=== PATIENT | female | born 1980 | race Hispanic/Latino ===

== ENCOUNTER 2018-08-30 20:00 | Inpatient (IN) | payer MEDICAID, OTHER, SELFPAY ==
--- NOTE | 2018-08-30 19:33 | PDOC.FPROB ---
Addendum entered and electronically signed by Wilfred Blanco DO 08/31/18 02:30 : Correction, EFW was 3594g, not 3253g Original Note: FMR OB H&P: HPI - History of Present Illness Chief Complaint: Medically indicated IOL for A1GDM Indentification: 38 year old History of Present Illness: 38 year old at 39.1 wks presents for medically indicated IOL for A1GDM. Patient endorses good movement. Patient denies vaginal bleeding, vaginal discharge, LoF. Primary Care Physician: LURDES Norton FMR OB H&P: Current - Care : 7 Para: [id number] Gestational age: 39.1 wks Due date: 09/05/2018 Dating Criteria: LMP/8.3 wk sono Total weight gain: 9 Ibs - OB Labs Blood type: O RH: positive Antibody Screen: negative HIV: negative RPR: negative HepBsAg: negative Rubella: immune Gonorrhea: negative Chlamydia: negative 1 hour gtt: 161 3 hour GTT: Fasting 95, 1hr 204, 2hr 175, 3hr 118 A1c: 5.6 GBS: positive Additional labs: Quant gold negative FMR OB H&P: History - Past Medical History PMH: None - OB History OB History: A1GDM, well controlled AMA Hx of gHTN in last Maternal obesity Hx SAB x3 Hx D&C x2 Polyhydramnios, resolved - 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 CAPTAIN History: D&C x2 - Surgical History Sx History: Hernia repair - Social History Social History: Denies alcohol, tobacco, or drug use FMR OB H&P: Medications - Current Home Medications: Medication Instructions Recorded Confirmed Type Vitamin 1 tab PO DAILY #0 tab 07/04/14 08/30/18 Rx Allergies/Adverse Reactions: Allergies Allergy/AdvReac Type Severity Reaction Status Date / Time No Known Allergies Allergy Verified 08/30/18 22:19 FMR OB H&P: ROS - Review of Systems General: denies: fever/chills, weight/appetite/sleep changes Eyes: denies: eye pain, vision changes ENT: denies: nasal congestion, rhinorrhea Cardiovascular: denies: chest pain, palpitation Respiratory: denies: cough, shortness of breath Gastrointestinal: denies: abdominal pain, indigestion, nausea, vomiting Genitourinary (Female): denies: incontinence, dysuria Musculoskeletal: denies: pain, stiffness Neurologic: denies: numbness, syncope Integumentary: denies: itching, rash Psychological: denies: depression, anxiety FMR OB H&P: Vital Signs - Maternal Vital signs: BP151/83, HR 71, RR 16, spO2 100% - Heart Tones Baseline: 130 Variability: moderate Acceleration: present Deceleration: absent Category: category 1 FMR OB H&P: Physical Exam - Physical Exam General: NAD, awake, alert and oriented HEENT: normocephalic and atraumatic, MMM Neck: supple, trachea midline Chest: non-tender to palpation, no lesions Heart: RRR, normal S1/S2, no murmurs/rubs/gallops, no edema General: CTAB, no respiratory distress, good air movement Abdomen: soft, gravid, non-tender, bowel sound present Musculoskeletal: normal gait and station, pulses present Neurological: cranial nerves II through XII intact Skin: no rash, good tugor Psychiatric: intact recent and remote memory, good judgement and insight, normal mood and affect - Pelvic Exam SVE: 3/50/-3 Barker score: 4 FMR OB H&P: A/P - Problem List (1) Encounter for induction of labor Current Visit: No Status: Acute Code(s): Z34.90 - ENCNTR FOR SUPRVSN OF NORMAL , UNSP, UNSP TRIMESTER (2) Gestational diabetes Current Visit: No Status: Acute Code(s): O24.419 - GESTATIONAL DIABETES MELLITUS IN , UNSP CONTROL Qualifiers: Gestational diabetes mellitus control: diet-controlled Trimester: third trimester Qualified Code(s): O24.410 - Gestational diabetes mellitus in , diet controlled (3) Term Current Visit: No Status: Acute Code(s): Z34.80 - ENCOUNTER FOR SUPRVSN OF NORMAL , UNSP TRIMESTER (4) AMA (advanced maternal age) multigravida 35+ Current Visit: Yes Status: Acute Code(s): O09.529 - SUPERVISION OF ELDERLY MULTIGRAVIDA, UNSPECIFIED TRIMESTER Qualifiers: Trimester: third trimester Qualified Code(s): O09.523 - Supervision of elderly multigravida, third trimester (5) History of gestational hypertension Current Visit: Yes Status: Acute Code(s): Z87.59 - PERSONAL HISTORY OF COMP OF PREG, CHLDBRTH AND THE PUERP (6) History of spontaneous Current Visit: Yes Status: Acute Code(s): Z87.59 - PERSONAL HISTORY OF COMP OF PREG, CHLDBRTH AND THE PUERP Disposition: 38 year old GXPX at 39.1 wks by 8.3wk US presents for medically indicated IOL for A1GDM 1. Encounter for medically indicated IOL - US: vertex, OP, anterior placenta, EFW 3253g - Cytotec induction; unfavorable cervix - Category I strip - Augment with pitocin when favorable 2. A1GDM - Well controlled - Q6h accuchecks 3. TIUP - See plan as above 4. AMA - Declined genetic screening 5. Hx of SAB x3 - D&C x2 6. Hx gHTN - Elevated BPs since admission, pending CMP and urine protein/creatinine ratio -We will continue monitoring BP and adjust our plan based on the trend 7. GBS positive -Starting penicillin prophylaxis Discussion: Date/Time: 08/30/181931 This H&P was discussed with Dr. Flannery who agrees with the above documentation and plan. Signature: Nicole Norton DO PGY-2 Addendum - Attending - Attending Attestation Date/Time: 08/31/181832 I personally evaluated the patient and discussed the management with Dr. Blanco at time of admission. I agree with the History, Examination, Assessment and Plan documented above with any addition or exceptions noted below.
[2018-08-30] MEDS: Lactated Ringer's 1,000 ML IV SCH (22:25)
[2018-08-30 22:29] VITALS: BMI 36.6
[2018-08-30] MEDS ORDERED: Butorphanol Tartrate 1 MG/ML VIAL SLOW IVP PRN (22:56)
[2018-08-30] MEDS ORDERED: Promethazine HCl 25 MG/ML VIAL IM PRN (22:56)
[2018-08-30] MEDS ORDERED: Lidocaine 1% (PF) 30 ML VIAL SC PRN (22:56)
[2018-08-30] MEDS ORDERED: NS / Oxytocin 40 units/1000ml 1,000 ML IV PRN (22:56)
[2018-08-30] MEDS ORDERED: Ibuprofen 800 MG TAB PO PRN (22:56)
[2018-08-30] MEDS ORDERED: Acetaminophen 500 MG TAB PO PRN (22:56)
[2018-08-30] MEDS ORDERED: Ondansetron PF 4 MG/2 ML Vial IVP PRN (22:56)
[2018-08-30 23:03] LABS: Hemoglobin 13.6 g/dL (12.0-16.0); Mean Corpuscular HGB CONC 34.7 g/dL (32.0-36.0); Mean Corpuscular Hemoglobin 29.9 pg (27.0-31.0); Mean Corpuscular Volume 86.2 fL (78.0-98.0); Mean Platelet Volume 9.7 fL (7.4-10.4); Platelet Count 224 thou/uL (130-400); RBC Distribution Width 14.3 % (11.5-14.5); Red Blood Cell (RBC) Count 4.54 mill/uL (4.20-5.40); White Blood Cell (WBC) Count 8.2 thou/uL (4.8-10.8)
--- NOTE | 2018-08-30 23:23 | ULT ---
EXAM: LIMITED OB ULTRASOUND: 08/30/18 HISTORY: 38-year-old female with history of head position and placenta location. Single intrauterine fetus noted in cephalic presentation. The placenta is anterior. heart rate 135 beats per minute. IMPRESSION: Anterior placenta. Cephalic presentation. heart rate of 135 beats per minute. POS: [facility]
[2018-08-30 23:44] LABS: Syphilis Antibody Nonreactive (Nonreactive); Syphilis Antibody Index 0.17 S/CO (<1.00 Non-Reactive)
[2018-08-30] MEDS ORDERED: Penicillin G Potassium 5 MILL.UNITS in Sodium Chloride 0.9% 100 ML IVPB SCH (23:45)
[2018-08-31 00:16] LABS: HBSAg Index 0.21 S/CO (0-0.99); Hep B Surf Ag Non-Reactive S/CO (NonReactive)
[2018-08-31 00:30] LABS: ALT (SGPT) 17 U/L (8-55); AST (SGOT) 23 U/L (5-34); Albumin 3.4 g/dL (3.5-5.0); Alkaline Phosphatase 324 U/L (40-150); Anion Gap 16 mmol/L (10-20); BUN (Urea Nitrogen) 14 mg/dL (7.0-18.7); Bilirubin, Total 0.5 mg/dL (0.2-1.2); Calc. Creatinine Clearance 165 mL/min (70-130); Calcium 9.5 mg/dL (7.8-10.44); Carbon Dioxide 17 mmol/L (22-29); Chloride 109 mmol/L (98-107); Estimated GFR-MDRD Greater than 90; Globulin 3.3 g/dL (2.4-3.5); Glucose 89 mg/dL (70-105); Potassium 4.5 mmol/L (3.5-5.1); Protein, Total 6.7 g/dL (6.0-8.3); Sodium 137 mmol/L (136-145)
[2018-08-31] MEDS ORDERED: Penicillin G Potassium 5 MILL.UNITS VIAL ONE (00:44)
[2018-08-31] MEDS: Misoprostol 100 MCG TAB VAG SCH ×4 (00:47→23:37)
--- NOTE | 2018-08-31 02:27 | PDOC.LDPN ---
Labor & Delivery Progress Note - Subjective Subjective: comfortable - Objective Vital signs reviewed and normal: yes (One BP 161/90, the remaining systolic range from 115-150s, diastolic max is 90) General: NAD, resting Uterine fundus: non tender SVE: /-3 FHT: category 1, variability present (moderate, baseline at 140s) [place] contractions every: 4 minutes - Assessment (1) Encounter for induction of labor Code(s): Z34.90 - ENCNTR FOR SUPRVSN OF NORMAL , UNSP, UNSP TRIMESTER Current Visit: No Status: Acute (2) Gestational diabetes Code(s): O24.419 - GESTATIONAL DIABETES MELLITUS IN , UNSP CONTROL Current Visit: No Status: Acute Qualifiers: Gestational diabetes mellitus control: diet-controlled Trimester: third trimester Qualified Code(s): O24.410 - Gestational diabetes mellitus in , diet controlled (3) Term Code(s): Z34.80 - ENCOUNTER FOR SUPRVSN OF NORMAL , UNSP TRIMESTER Current Visit: No Status: Acute (4) AMA (advanced maternal age) multigravida 35+ Code(s): O09.529 - SUPERVISION OF ELDERLY MULTIGRAVIDA, UNSPECIFIED TRIMESTER Current Visit: Yes Status: Acute Qualifiers: Trimester: third trimester Qualified Code(s): O09.523 - Supervision of elderly multigravida, third trimester (5) History of gestational hypertension Code(s): Z87.59 - PERSONAL HISTORY OF COMP OF PREG, CHLDBRTH AND THE PUERP Current Visit: Yes Status: Acute (6) History of spontaneous Code(s): Z87.59 - PERSONAL HISTORY OF COMP OF PREG, CHLDBRTH AND THE PUERP Current Visit: Yes Status: Acute -: 38 year old GXPX at 39.1 wks by 8.3wk US presents for medically indicated IOL for A1GDM 1. Encounter for medically indicated IOL - US: vertex, OP, anterior placenta, EFW 3594g - Cytotec at 0047 with check of /-3, recheck in 2-3 hours - Category I strip - Augment with pitocin when favorable 2. A1GDM -Initial glucose 89, continue Q4 accuchecks 3. TIUP - See plan as above 4. AMA - Declined genetic screening 5. Hx of SAB x3 - D&C x2 6. Hx gHTN - Elevated BPs since admission, urine protein/creatinine ratio -We will continue monitoring BP and adjust our plan based on the trend, no need for intervention at this point 7. GBS positive -Starting penicillin prophylaxis
[2018-08-31 04:13] LABS: Creatinine, Urine 80.41 mg/dL (47-110)
[2018-08-31] MEDS: Lactated Ringer's 1,000 ML IV SCH ×2 (04:31→12:12)
[2018-08-31] MEDS: Penicillin G 2.5 MILL.units 2.5 MILL.UNITS in Premix Bag 1 BAG IVPB SCH ×5 (04:47→23:37)
--- NOTE | 2018-08-31 04:49 | PDOC.LDPN ---
Labor & Delivery Progress Note - Subjective Subjective: comfortable, no concerns - Objective Vital signs reviewed and normal: yes General: NAD, resting Uterine fundus: non tender SVE: 3/50/-3 FHT: category 1 [place] contractions every: 1-2 minutes - Assessment (1) Encounter for induction of labor Code(s): Z34.90 - ENCNTR FOR SUPRVSN OF NORMAL , UNSP, UNSP TRIMESTER Current Visit: No Status: Acute (2) Gestational diabetes Code(s): O24.419 - GESTATIONAL DIABETES MELLITUS IN , UNSP CONTROL Current Visit: No Status: Acute Qualifiers: Gestational diabetes mellitus control: diet-controlled Trimester: third trimester Qualified Code(s): O24.410 - Gestational diabetes mellitus in , diet controlled (3) Term Code(s): Z34.80 - ENCOUNTER FOR SUPRVSN OF NORMAL , UNSP TRIMESTER Current Visit: No Status: Acute (4) AMA (advanced maternal age) multigravida 35+ Code(s): O09.529 - SUPERVISION OF ELDERLY MULTIGRAVIDA, UNSPECIFIED TRIMESTER Current Visit: Yes Status: Acute Qualifiers: Trimester: third trimester Qualified Code(s): O09.523 - Supervision of elderly multigravida, third trimester (5) History of gestational hypertension Code(s): Z87.59 - PERSONAL HISTORY OF COMP OF PREG, CHLDBRTH AND THE PUERP Current Visit: Yes Status: Acute (6) History of spontaneous Code(s): Z87.59 - PERSONAL HISTORY OF COMP OF PREG, CHLDBRTH AND THE PUERP Current Visit: Yes Status: Acute -: 38 year old GXPX at 39.1 wks by 8.3wk US presents for medically indicated IOL for A1GDM 1. Encounter for medically indicated IOL - US: vertex, OP, anterior placenta, EFW 3594g - Check 350/-3, contractions 1-2 minutes, we will hold off on cytotec - Category I strip - Augment with pitocin when favorable 2. A1GDM -Current Glucose 83, continue Q4 accuchecks 3. TIUP - See plan as above 4. Hx gHTN - Elevated BPs since admission, urine protein/creatinine ratio of .14 -We will continue monitoring BP and adjust our plan based on the trend, no need for intervention at this point 7. GBS positive -Continuing penicillin
--- NOTE | 2018-08-31 08:11 | ULT ---
PRELIMINARY REPORT/[facility]/EMERGENTY AFTER-HOURS PROCEDURE US After First Trimester, Transabdominal EXAM DATE/TIME: 08/30/2018 11:40 PM CLINICAL HISTORY: 38 years old, female; Condition or disease; Lmp or gestational age (weeks): 38w5d; Other: Gest diabet es; 4th ; ; Patient HX: Limited exam for growth TECHNIQUE: Real-time transabdominal obstetrical ultrasound of the maternal pelvis and a second or third trimeste r with image documentation. COMPARISON: No relevant prior studies available. FINDINGS: GESTATION: Gestation: Single live intrauterine gestation. Heart rate: heart rate is 133 beats per minute. Presentation: Single intrauterine fetus in vertex position. Placenta: Anterior placenta with no previa or abruption. Amniotic fluid: Amniotic fluid volume is 12.9 cm. BIOMETRY: Estimated gestational age: Average gestational age 38 weeks 5 days with RICHAR 09/08/2018. Estimated weight: Estimated weight 3594 g Biparietal diameter: 9.5 cm, 38 weeks 5 days Head circumference: 33.7 cm, 38 weeks 4 days Abdominal circumference: 35 cm, 39 weeks 0 days Femur length: 7.5 cm, 38 weeks 2 days IMPRESSION: Intrauterine fetus measuring 38 weeks 5 days with RICHAR of 09/08/2018. Thank you for allowing us to participate in the care of your patient. Dictated and Authenticated by: Magalie Bonilla MD 08/31/2018 1:40 AM Central Time ([place] & [place]) FINAL REPORT OBSTETRICAL ULTRASOUND: DATE: 08/30/2018. COMPARISON: None. HISTORY: A 38-year-old female, evaluate growth. FINDINGS: I agree with the preliminary V-RAD report dictated by Dr. David. There is a single live intraute rine gestation present demonstrating a vertex presentation and a heart rate of 133 b.p.m. Plac enta located anteriorly with no evidence for a previa or abruption. Amniotic fluid index is 12.9 cm. BIOMETRY: BPD 9.5 cm, 38 weeks 5 days HC 33.7 cm, 38 weeks 4 days AC 35.1 cm, 39 weeks 0 days FL 7.5 cm, 38 weeks 2 days Average age based on ultrasound is 38 weeks 5 days. Estimated date of delivery of 09/08/2018. Estimated weight is 3495 gm +/- 532 gm. IMPRESSION: Single live intrauterine gestation as detailed above. anatomy was not assessed on this exam. POS: [facility]
[2018-08-31] MEDS ORDERED: NS w/ Oxytocin 10 units 500 ML ONE (09:15)
[2018-08-31] MEDS ORDERED: Fentanyl 4 mcg/Bup 0.1% Cadd 100 ML ONE (11:35)
--- NOTE | 2018-08-31 11:39 | PDOC.LDPN ---
Labor & Delivery Progress Note - Subjective Subjective: comfortable - Objective Vital signs reviewed and normal: yes General: NAD Uterine fundus: non tender FHT: category 1 (130/mod/+accel/no decel) [place] contractions every: 2-3 min Plan: continue plan of care, pitocin for augmentation -: 38 year old GXPX at 39.1 wks by 8.3wk US presents for medically indicated IOL for A1GDM 1. Encounter for medically indicated IOL - US: vertex, OP, anterior placenta, EFW 3594g - Check /-3, contractions 1-2 minutes, we will hold off on cytotec - Category I strip - Continue pitocin (started @ 0918), currently @ 3. Will recheck cervix 4 hrs after starting pit - pt desires epidural. Anesthesia consult placed. 2. A1GDM -Last glucose 83, continue Q4 accuchecks 3. TIUP - See plan as above 4. Hx gHTN - Elevated BPs since admission, urine protein/creatinine ratio of .14 -We will continue monitoring BP and adjust our plan based on the trend, no need for intervention at this point 7. GBS positive -Continuing penicillin Addendum - Attending - Attending Attestation Date/Time: 08/31/18 1311 I personally evaluated the patient and discussed the management with Dr. Barber and team. I agree with and repeated the History, Examination, Assessment and Plan documented above with any addition or exceptions noted below.
[2018-08-31] MEDS ORDERED: Lidocaine 1.5% w/Epi 1:200K 30 ML VIAL (Epid Use) ONE (11:49)
[2018-08-31] MEDS ORDERED: Lidocaine 1.5%/Epinephrine 1:200,000 5 ML AMPUL IJ ONE (11:50)
[2018-08-31] MEDS ORDERED: Naloxone HCl 0.4 mg/ml Vial IVP PRN ×2 (12:11)
[2018-08-31] MEDS ORDERED: Lactated Ringer's 500 ML IV PRN (12:11)
[2018-08-31] MEDS ORDERED: Promethazine HCl 25 MG/ML VIAL IM PRN (12:11)
[2018-08-31] MEDS ORDERED: Eucerin (Mineral Oil/Petrolatum,White) 30 gm Jar TOP PRN (12:11)
[2018-08-31] MEDS ORDERED: diphenhydrAMINE 50 MG/ML VIAL IVP PRN (12:11)
[2018-08-31] MEDS ORDERED: Ondansetron PF 4 MG/2 ML Vial IVP PRN ×2 (12:11→20:32)
[2018-08-31] MEDS ORDERED: ePHEDrine/0.9% NaCl/PF SYRINGE 50 mg/10 ml SLOW IVP PRN (12:11)
[2018-08-31] MEDS ORDERED: Fentanyl 4 mcg/Bupivacaine 0.1% Cassette 100 ML EPIDURAL SCH (12:15)
[2018-08-31] MEDS ORDERED: Communication Order-Pharmacy FS SCH (12:15)
--- NOTE | 2018-08-31 15:41 | PDOC.LDPN ---
Labor & Delivery Progress Note - Subjective Subjective: comfortable - Objective Vital signs reviewed and normal: yes (140/90) Dilation: 6 Effacement: 100% Station: -1 FHT: category 1 (135/mod/+accel/no decel) [place] contractions every: 2-3 AROM: clear fluid (blood tinged) Plan: continue plan of care, pitocin for augmentation -: 38 year old GXPX at 39.1 wks by 8.3wk US presents for medically indicated IOL for A1GDM 1. Encounter for medically indicated IOL - US: vertex, OP, anterior placenta, EFW 3594g - Check 6/100/-1, ctx q2-3 min. Pit @ 8. - Category I strip - epidural in place - AROM @ 1515 with blood tinged fluid 2. A1GDM -Last glucose 83, continue Q4 accuchecks 3. TIUP - See plan as above 4. Hx gHTN - Elevated BPs since admission, urine protein/creatinine ratio of .14 -We will continue monitoring BP and adjust our plan based on the trend, no need for intervention at this point 7. GBS positive -Continuing penicillin Addendum - Attending - Attending Attestation Date/Time: 08/31/18 3188 I personally evaluated the patient and discussed the management with Dr. Barber and team. I agree with the History, Examination, Assessment and Plan documented above with any addition or exceptions noted below. After AROM decel; on exam no cord. FSE placed. Now cat 1 with MV, no accels, no decels.
[2018-08-31] MEDS ORDERED: Dextrose 5%-Lactated Ringers 1,000 ML IV SCH (15:45)
--- NOTE | 2018-08-31 18:13 | PDOC.OPDEL ---
OB Operative/Delivery Note Delivery Dr/Surgeon: Sunil/Domi/Prudencio Pre-Delivery Diagnosis: medically indicated induction Procedure/Post Delivery Dx: spontaneous vaginal delivery Weeks gestation: 39 Anesthesia: epidural - Additional Findings/Plan Placenta delivered: spontaneous Repaired Obstetrical Laceration: none Compilations/Other Findings: Delivering Physician: Domi/Sunil Attending: Prudencio Procedure: Spontaneous Vaginal Delivery Anesthesia: epidural QBL: 312 ml Pre-op Diagnosis: 1. Term intrauterine in labor 2. A1GDM 3. GBS +, adequately treated 4. Hx of gHTN 5. Hx SAB x3 6. gHTN Post-op Diagnosis: 1. Term intrauterine , delivered 2. same as above Indications: A 38y/o female presents to L&D for induction due to A1GDM Delivery Note: This is 38yo F now 4 @ 39.2 wks who delivered a viable M infant at 1745 on 08/31/18. Following an antepartum course complicated by A1GDM, a vigorous M was delivered over an intact perineum in the OA position. Anterior Shoulder and then remainder of the body delivered. No nuchal cord. The head was held down and mouth and nares were bulb suctioned. Cord clamped and cut and cord blood collected. Placenta delivered intact in the Marie presentation with a 3 vessel cord noted. Fundal massage was performed and the fundus was firm. The cervix and vagina were inspected and found to be free of lacerations. Infant went to nursery in good condition for routine care. Apgars were 8 /9 at 1 & 5 minutes, respectively. Patient tolerated delivery well and went to after routine recovery/care. Post delivery plan: routine recovery
[2018-08-31] MEDS ORDERED: Adacel (T-DAP) 0.5 ML SYRINGE IM ONE (20:32)
[2018-08-31] MEDS ORDERED: Lanolin Ointment 7 GM TUBE TOP PRN (20:32)
[2018-08-31] MEDS ORDERED: diphenhydrAMINE 25 MG CAP PO PRN (20:32)
[2018-08-31] MEDS ORDERED: NS / Oxytocin 40 units/1000ml 1,000 ML IV SCH (20:32)
[2018-08-31] MEDS ORDERED: Milk Of Magnesia 30 ML UDCUP PO PRN (20:32)
[2018-08-31] MEDS ORDERED: Preparation H Ointment 28 GM TUBE PR PRN (20:32)
[2018-08-31] MEDS ORDERED: Bisacodyl 10 MG SUPP PR PRN (20:32)
[2018-08-31] MEDS: Ibuprofen 800 MG TAB PO SCH (22:52)
[2018-08-31] MEDS: Docusate Calcium (SURFAK) 240 MG CAP PO SCH (22:52)
--- NOTE | 2018-09-01 06:50 | PDOC.PP ---
Post Progress Note Post Day #: 1 Subjective: Patient doing well this AM. No significant overnight events. Tolerating PO. Ambulating without difficulty. PO intake tolerated: yes Flatus: yes Ambulation: yes Vital Signs (12 hours) Temp Pulse Resp BP Pulse Ox 09/01/18 05:40 97.6 F 60 16 119/73 08/31/18 22:50 98.3 F 71 18 132/67 08/31/18 21:44 98.4 F 71 18 123/71 98 Weight Weight 93.894 kg - Physical Examination General: NAD Cardiovascular: RRR Respiratory: non-labored breathing Abdominal: + bowel sounds, lochia (less than that of period), no distention, appropriately TTP Fundus firm & at: above umbilicus Neurological: no gross focal deficits Psychiatric: A&Ox3, normal affect Result Diagrams: 08/30/18 22:25 08/30/18 22:25 Additional Labs: Post Labs Blood Type O POSITIVE 08/30/18 22:25 Hep Bs Antigen Non-Reactive S/CO (NonReactive) 08/30/18 22:25 (1) (spontaneous vaginal delivery) Code(s): O80 - ENCOUNTER FOR FULL-TERM UNCOMPLICATED DELIVERY Status: Acute (2) Gestational diabetes Code(s): O24.419 - GESTATIONAL DIABETES MELLITUS IN , UNSP CONTROL Status: Acute Qualifiers: Gestational diabetes mellitus control: diet-controlled Trimester: third trimester Qualified Code(s): O24.410 - Gestational diabetes mellitus in , diet controlled (3) AMA (advanced maternal age) multigravida 35+ Code(s): O09.529 - SUPERVISION OF ELDERLY MULTIGRAVIDA, UNSPECIFIED TRIMESTER Status: Acute Qualifiers: Trimester: third trimester Qualified Code(s): O09.523 - Supervision of elderly multigravida, third trimester (4) History of gestational hypertension Code(s): Z87.59 - PERSONAL HISTORY OF COMP OF PREG, CHLDBRTH AND THE PUERP Status: Acute (5) History of spontaneous Code(s): Z87.59 - PERSONAL HISTORY OF COMP OF PREG, CHLDBRTH AND THE PUERP Status: Acute (6) Term delivered Code(s): O80 - ENCOUNTER FOR FULL-TERM UNCOMPLICATED DELIVERY Status: Acute - Assessment/Plan 38 year old at 39.2 wks deliveried Term male infant at 17:45 on 2018 via . Apgars 8/9. 1. Term , delivered - Via - No lacerations - Routine PP care recommended - Encourage continuation of - Contraception undecided at this time 2. - Plan as above 3. AMA - Declined genetic screening 4. GBS positive - Adequately treated 5. A1 GDM - FBG this AM in 60's - Patient can resume regular diet - Patient will need screening for DM 6 wks PP Dispo: Due to ABO incompatibility and maternal history of A1GDM, anticipate stay of 48 hours for infant. Plan for possible d/c home tomorrow. Nicole Norton, DO PGY-2 Addendum - Attending - Attending Attestation Date/Time: 09/01/18 1051 I personally evaluated the patient and discussed the management with Dr. Norton and team. I agree with and repeated the History, Examination, Assessment and Plan documented above with any addition or exceptions noted below.
[2018-09-01] MEDS: Docusate Calcium (SURFAK) 240 MG CAP PO SCH ×2 (09:07→19:56)
[2018-09-01] MEDS: Ibuprofen 800 MG TAB PO SCH ×3 (09:07→16:56)
[2018-09-01] MEDS: Prenatal Vitamin 1 TAB PO SCH (09:07)
[2018-09-01] MEDS: Ferrous Sulfate 325 MG TAB PO SCH ×2 (09:07→17:56)
[2018-09-01] MEDS: Acetaminophen 325 MG TAB PO PRN ×2 (15:49→19:56)
[2018-09-02] MEDS: Ibuprofen 800 MG TAB PO SCH ×4 (00:02→21:34)
--- NOTE | 2018-09-02 07:35 | PDOC.PP ---
Addendum entered and electronically signed by Nicole Norton DO 09/02/18 12 :40: gHTN: - Diagnosed on admission; patient with elevated BP's reported overnight on night of induction (BP's >140/90, but none in severe range per report) - Pre-E workup negative on admission - One elevated BP of 142/80 last night; otherwise BP's have been well controlled - No signs/symptoms of pre-E Original Note: Post Progress Note Post Day #: 2 Subjective: Patient doing well. No significant overnight events. Patient tolerating PO. No concerns at this time. PO intake tolerated: yes Flatus: yes Ambulation: yes Vital Signs (12 hours) Temp Pulse Resp BP Pulse Ox 09/01/18 19:42 98.2 F 62 16 142/80 H 98 Weight Weight 93.894 kg - Physical Examination General: NAD Cardiovascular: RRR Respiratory: non-labored breathing Abdominal: + bowel sounds, lochia (less than that of period), no distention, appropriately TTP Fundus firm & at: at umbilicus Neurological: no gross focal deficits Psychiatric: A&Ox3, normal affect Result Diagrams: 08/30/18 22:25 08/30/18 22:25 Additional Labs: Post Labs Blood Type O POSITIVE 08/30/18 22:25 Hep Bs Antigen Non-Reactive S/CO (NonReactive) 08/30/18 22:25 (1) (spontaneous vaginal delivery) Code(s): O80 - ENCOUNTER FOR FULL-TERM UNCOMPLICATED DELIVERY Status: Acute (2) Gestational diabetes Code(s): O24.419 - GESTATIONAL DIABETES MELLITUS IN , UNSP CONTROL Status: Acute Qualifiers: Gestational diabetes mellitus control: diet-controlled Trimester: third trimester Qualified Code(s): O24.410 - Gestational diabetes mellitus in , diet controlled (3) AMA (advanced maternal age) multigravida 35+ Code(s): O09.529 - SUPERVISION OF ELDERLY MULTIGRAVIDA, UNSPECIFIED TRIMESTER Status: Acute Qualifiers: Trimester: third trimester Qualified Code(s): O09.523 - Supervision of elderly multigravida, third trimester (4) History of gestational hypertension Code(s): Z87.59 - PERSONAL HISTORY OF COMP OF PREG, CHLDBRTH AND THE PUERP Status: Acute (5) History of spontaneous Code(s): Z87.59 - PERSONAL HISTORY OF COMP OF PREG, CHLDBRTH AND THE PUERP Status: Acute (6) Term delivered Code(s): O80 - ENCOUNTER FOR FULL-TERM UNCOMPLICATED DELIVERY Status: Acute - Assessment/Plan 38 year old at 39.2 wks deliveried Term male at 17:45 on 2018 via . Apgars 8/9. 1. Term , delivered - Via - No lacerations - Routine PP care recommended - Encourage continuation of - Contraception desired PP: Nexplanon 2. - Plan as above 3. AMA - Declined genetic screening 4. GBS positive - Adequately treated 5. A1 GDM - FBG in 60's - Patient can resume regular diet - Patient will need screening for DM 6 wks PP Dispo: Plan for d/c home today. currently under phototherapy. If possible , bed and breakfast patient. Nicole Norton, DO PGY-2 Addendum - Attending - Attending Attestation Date/Time: 09/02/18 1315 I personally evaluated the patient and discussed the management with Dr. Norton I agree with the History, Examination, Assessment and Plan documented above with any addition or exceptions noted below. 38 yo now female s/p on 08/31/18 at 1745 HD# 3 PPD# 2 Patient doing well. No complaints. Pain controlled. Ambulating. Lochia mild. Voiding without difficulty. VS reviewed. Labs reviewed. NAD. RRR. No M/R/G CTA bilaterally. No W/C/R. Fundus firm. NT/ND. FROM. No C/C/E. 1. s/p : Routine pp care. Meeting all milestones. Ok for discharge to home. 2. A1GDM: Will need 6 wk 2 hour OGT. 3. gHTN with hx of gHTN in previous : Asymptomatic. BP normotensive. Would follow up in 3 to 5 days for BP check in clinic. Risk for long term care pharmacist CV complications. Recommend ASA ppx in future pregnancies. 4. AMA: Risk of future pregnancies discussed. 5. BMI 37: Lifestyle changes. 6. hx of SAB x3 with D&C x2: Risk for placenta complications in future pregnancies. 7. GBS carrier: Appropriately treated. No s/sx of infection. 8. Contraception: LARC 9. Dispo: D/c to home. Follow up in clinic in 3 to 5 days for BP monitoring. Valerio
[2018-09-02] MEDS: Ferrous Sulfate 325 MG TAB PO SCH (08:43)
[2018-09-02] MEDS: Docusate Calcium (SURFAK) 240 MG CAP PO SCH ×2 (10:28→21:34)
[2018-09-02] MEDS: Prenatal Vitamin 1 TAB PO SCH (10:28)
[2018-09-02 21:14] VITALS: BP 133/65; TEMP 97.8
== END 2018-09-02 21:20 | disposition home or self-care (01) | DRG 807 ==
LOC: L&D 20:55 → 3SE 08-31 22:02
PROVIDERS: ADMIT Emergency Medicine; ATTEND Emergency Medicine
PROC: 10E0XZZ Delivery of Products of Conception, External Approach (ICD-10-PCS; principal; 2018-08-31)
PROC: 3E0P7VZ Introduction of Hormone into Female Reproductive, Via Natural or Artificial Opening (ICD-10-PCS; 2018-08-31)
PROC: 3E033VJ Introduction of Other Hormone into Peripheral Vein, Percutaneous Approach (ICD-10-PCS; 2018-08-31)
PROC: 10907ZC Drainage of Amniotic Fluid, Therapeutic from Products of Conception, Via Natural or Artificial Opening (ICD-10-PCS; 2018-08-31)
DX: O24.420 Gestational diabetes mellitus in childbirth, diet controlled (principal); Z37.0 Single live birth; O99.214 Obesity complicating childbirth; E66.9 Obesity, unspecified; Z98.890 Other specified postprocedural states; O76 Abnormality in fetal heart rate and rhythm complicating labor and delivery; O99.824 Streptococcus B carrier state complicating childbirth; O13.4 Gestational [pregnancy-induced] hypertension without significant proteinuria, complicating childbirth; O36.1130 Maternal care for Anti-A sensitization, third trimester, not applicable or unspecified; Z3A.39 39 weeks gestation of pregnancy
CPT/HCPCS: 36416; 51702; 76815; 80053; 82570; 84156; 85027; 86780; 86850; 86900; 86901; 87340; J1200; J2540; J3490; J7050